=== PATIENT | female | born 1945 | race Caucasian/White ===

== ENCOUNTER 2017-06-25 13:37 | Emergency (ER) | payer OTHER ==
[~2017-06-25] VITALS: Ht 149.9 cm; Wt 66.7 kg
[~2017-06-25 13:37] MED LIST: ADULT LOW DOSE81 MG PO; ALLER-EASE180 MG PO; ASPIRIN325 PO; ATORVASTATIN CA40 MG PO; BACITRACIN 500U30 G1 TOP; CELEXA20 MG PO; CLONIDINE0.1 PO; COMBIGAN EYE DR10 ML OP; COREG; COREG25 MG PO; LANTUS SC; LASIX 20 MG TAB20 MG PO; LEVOTHROID 00.075 M1 PO; LEVOTHYROXIN0.075 MG PO; LISINOPRIL10 MG PO; MELOXICAM7.5 MG PO; NEURONTIN 300300 M1 PO; NOVOLOG100 UNIT/1 SUBQ; OMEPRAZOLE20 M1 PO; ZOCOR 20 MG TAB20 M1 PO; [UNRECOGNIZED DRUG - REMARK]
[2017-06-25 14:12] LABS: ABSOLUTE BASOPHILS 0.1 thou/uL (0.0-0.2); ABSOLUTE LYMPHOCYTES 1.6 thou/uL (0.8-5.3); ABSOLUTE MONOCYTES 0.6 thou/uL (0.0-1.2); ABSOLUTE NEUTROPHILS 8.4 thou/uL (1.6-8.1); BASOPHILS 0.7 %; EOSINOPHILS 0.1 %; HEMATOCRIT 45.3 % (37.0-47.0); HEMOGLOBIN 14.8 gm/dL (12.0-15.0); LYMPHOCYTES 14.9 %; MCH 30.9 pg (26.0-34.0); MCHC 32.6 g/dL (28.0-37.0); MCV 94.7 fL (80.0-100.0); MONOCYTES 5.3 %; MPV 9.5 fl. (7.2-11.1); NUCLEATED RBCS 0 /100WBC; PLATELET COUNT* 136 thou/uL (150-400); RBC 4.79 mil/uL (4.20-5.00); RDW-CV 14.1 % (10.5-14.5); WBC 10.6 thou/uL (4.0-11.0)
[2017-06-25 14:20] LABS: CALCIUM 9.2 mg/dL (8.5-10.1); CREATININE 1.5 mg/dL (0.6-1.3); POTASSIUM 4.4 mmol/L (3.5-5.1)
[2017-06-25 14:24] LABS: ALBUMIN 3.8 g/dL (3.4-5.0); TOTAL BILIRUBIN 0.4 mg/dL (<0.1-1.0); TOTAL PROTEIN 7.5 g/dL (6.4-8.2)
[2017-06-25 15:48] LABS: URINE BILIRUBIN NEGATIVE (Negative); URINE BLOOD 1+ (Negative); URINE CLARITY CLEAR; URINE COLOR YELLOW; URINE GLUCOSE-RANDOM 2+ (Negative); URINE KETONES NEGATIVE (Negative); URINE LEUKOCYTES-REFLEX NEGATIVE (Negative); URINE NITRITE-REFLEX NEGATIVE (Negative); URINE PROTEIN 1+ (Negative); URINE SPECIFIC GRAVITY 1.015 (1.005-1.030); URINE UROBILINOGEN 0.2 E.U./dl (0.2-1.0)
[2017-06-25 16:00] LABS: BACTERIA-REFLEX None Seen /HPF (None Seen); CRYSTALS None Seen /LPF (None Seen); HYALINE CASTS 0-3 Few /LPF (None Seen); SQUAMOUS >10 Many /LPF (0-3); URINE RBC 3-10 Few /HPF (0-2); URINE WBC-REFLEX 0-5 Rare /HPF (0-5)
[2017-06-25] MEDS ORDERED: CLEARLAX17 GM PO (16:05)
[2017-06-25 16:15] VITALS: BP 171/66
== END 2017-06-25 16:17 | disposition home or self-care (01) ==
LOC: M.ERS 13:37
PROVIDERS: Nurse Practitioner Family
DX: K59.00 Constipation, unspecified (principal); E11.9 Type 2 diabetes mellitus without complications; E03.9 Hypothyroidism, unspecified; I10 Essential (primary) hypertension; Z90.49 Acquired absence of other specified parts of digestive tract; Z90.710 Acquired absence of both cervix and uterus; Z79.4 Long term (current) use of insulin; Z88.5 Allergy status to narcotic agent; Z88.0 Allergy status to penicillin; Z88.8 Allergy status to other drugs, medicaments and biological substances

== ENCOUNTER → 2018-12-28 | Outpatient (CLI) | payer OTHER ==
[~2018-12-28] MED LIST changes: +CLEARLAX17 GM PO
[2018-12-28 14:36] LABS: ALBUMIN 3.8 g/dL (3.4-5.0); ALKALINE PHOSPHATASE 109 U/L (46-116); ANION GAP 4 mmol/L (7-16); BUN 32 mg/dL (7-18); CALCIUM 9.5 mg/dL (8.5-10.1); CHLORIDE 105 mmol/L (98-107); CHOLESTEROL 144 mg/dL (<200); CO2 35 mmol/L (21-32); CREATININE 1.2 mg/dL (0.6-1.3); GLUCOSE 76 mg/dL (70-99); HDL CHOLESTEROL 66 mg/dL (>40); LDL CHOLESTEROL 56 mg/dL (<100); NT-PRO BRAIN NAT PEPTIDE 2285 pg/mL (<300); POTASSIUM 4.3 mmol/L (3.5-5.1); SGOT 20 U/L (15-37); SGPT 28 U/L (30-65); SODIUM 144 mmol/L (136-145); TC:HDL 2.2 Ratio (Not establshd); TOTAL BILIRUBIN 0.5 mg/dL (<0.1-1.0); TOTAL PROTEIN 6.7 g/dL (6.4-8.2); TRIGLYCERIDE 112 mg/dL (<150); VLDL 22 mg/dL (<40)
[2018-12-28 14:38] LABS: SERUM ASSESSMENT Clear
== END ==
LOC: M.LAB 13:47
PROVIDERS: Registered Nurse
DX: I42.8 Other cardiomyopathies (principal); E78.5 Hyperlipidemia, unspecified

== ENCOUNTER → 2019-01-24 | Outpatient (CLI) | payer OTHER ==
--- NOTE | 2019-01-24 15:48 | 2DMMODE ---
[place] [address] 2 D/M-MODE ECHOCARDIOGRAM Name: VINICIO BALLESTEROS Room: [facility]#: [id number] Admission: 01/24/19 Attend Phys: Milagro Martell Discharge: Date of : 41 Date of Service: 01/24/19 1548 Report #: [id number] THIS REPORT FOR: //name// APPROVED REPORT Study performed: 01/24/2019 13:48:18 EXAM: Comprehensive 2D, Doppler, and color-flow Echocardiogram Patient Location: Out-Patient BSA: 1.60 HR: 79 bpm BP: 137/72 mmHg Other Information Study Quality: Fair Indications Cardiomyopathy 2D Dimensions IVSd: 10.96 (7-11mm) LVOT Diam: 20.47 (18-24mm) LVDd: 43.27 mm PWd: 12.49 (7-11mm) Ascending Ao: 25.72 (22-36mm) LVDs: 33.31 (25-40mm) Aortic Root: 22.53 mm Volumes Left Atrial Volume (Systole) LA ESV Index: 19.70 mL/m2 Aortic Valve AoV Peak Juan.: 1.52 m/s AO Peak Gr.: 9.19 mmHg LVOT Max P.17 mmHg AO Mean Gr.: 5.06 mmHg LVOT Mean P.05 mmHg LVOT Max V: 0.74 m/s AO V2 VTI: 26.19 cm LVOT Mean V: 0.47 m/s LESLEY (VTI): 1.99 cm2 LVOT V1 VTI: 15.85 cm TDI Medial E' Juan.: 0.07 m/s Lateral E' Juan.: 0.11 m/s Pulmonary Valve PV Peak Juan.: 0.82 m/s PV Peak Gr.: 2.[place] [address] 2 D/M-MODE ECHOCARDIOGRAM Name: VINICIO BALLESTEROS Room: [facility]#: [id number] Admission: 01/24/19 Attend Phys: Milagro Martell Discharge: Date of : 41 Date of Service: 01/24/19 1548 Report #: [id number] Tricuspid Valve RAP Estimate: 5.00 mmHg TR Peak Gr.: 26.02 mmHg RVSP: 31.02 mmHg PA Pressure: 31.02 mmHg Left Ventricle The left ventricle is normal size. There is moderate diffuse hypokinesis of left ventricular wall motion. There is normal left ventricular wall thickness. Left ventricular systolic function is moderately decreased. LVEF is 40-45%. Right Ventricle The right ventricle is normal size. The right ventricular systolic function is normal. Atria Left atrium is mildly dilated. The right atrium size is normal. Aortic Valve Aortic valve is mildly calcified. Mild aortic regurgitation. There is no aortic valvular stenosis. Mitral Valve The mitral valve is normal in structure. Mild mitral regurgitation. No evidence of mitral valve stenosis. Tricuspid Valve The tricuspid valve is normal in structure. Mild tricuspid regurgitation. Pulmonic Valve The pulmonary valve is normal in structure. Mild pulmonic regurgitation. Great Vessels The aortic root is normal in size. IVC is normal in size and collapses >50% with inspiration. Pericardium There is no pericardial effusion. <Conclusion> The left ventricle is normal size. There is normal left [place] [address] 2 D/M-MODE ECHOCARDIOGRAM Name: FAVIANVINICIO Room: [facility]#: [id number] Admission: 01/24/19 Attend Phys: Milagro Martell Discharge: Date of : 41 Date of Service: 01/24/19 1548 Report #: [id number] Left ventricular systolic function is moderately decreased. LVEF is 40-45%. The right ventricle is normal size. Left atrium is mildly dilated. The right atrium size is normal. Aortic valve is mildly calcified. Mild aortic regurgitation. There is no aortic valvular stenosis. The mitral valve is normal in structure. Mild mitral regurgitation. The tricuspid valve is normal in structure. Mild tricuspid regurgitation. IVC is normal in size and collapses >50% with inspiration. There is no pericardial effusion. There is moderate diffuse hypokinesis of left ventricular wall motion. <ELECTRONICALLY SIGNED> By: Cj Hernandez MD, [facility] 01/24/19 1548 1548 1548 Cj Hernandez MD, FAC /INF
== END ==
LOC: M.CRD 13:32
DX: I08.8 Other rheumatic multiple valve diseases (principal); I42.8 Other cardiomyopathies

== ENCOUNTER 2021-03-17 14:00 | Inpatient (IN) | payer OTHER ==
[~2021-03-17] VITALS: Ht 149.9 cm; Wt 65.8 kg
[2021-03-17 14:04] VITALS: BP 166/68
[2021-03-17 14:50] LABS: ABSOLUTE BASOPHILS 0.1 thou/uL (0.0-0.2); ABSOLUTE EOSINOPHILS 0.1 thou/uL (0.0-0.7); ABSOLUTE LYMPHOCYTES 2.2 thou/uL (0.8-5.3); ABSOLUTE MONOCYTES 0.7 thou/uL (0.0-1.2); ABSOLUTE NEUTROPHILS 5.3 thou/uL (1.6-8.1); BASOPHILS 0.7 %; EOSINOPHILS 1.5 %; HEMOGLOBIN 12.6 gm/dL (12.0-15.0); LYMPHOCYTES 26.6 %; MCH 31.2 pg (26.0-34.0); MCHC 33.2 g/dL (28.0-37.0); MONOCYTES 8.3 %; MPV 9.3 fl. (7.2-11.1); NUCLEATED RBCS 0 /100WBC; PLATELET COUNT* 143 thou/uL (150-400); POLYS 62.9 %; RBC 4.05 mil/uL (4.20-5.00); RDW-CV 13.9 % (10.5-14.5); WBC 8.4 thou/uL (4.0-11.0)
[2021-03-17 14:58] LABS: CALCIUM 8.5 mg/dL (8.5-10.1); CREATININE 1.4 mg/dL (0.6-1.3); POTASSIUM 5.3 mmol/L (3.5-5.1)
[2021-03-17 15:03] LABS: ALBUMIN 3.1 g/dL (3.4-5.0); TOTAL BILIRUBIN 0.3 mg/dL (<0.1-1.0); TOTAL PROTEIN 6.3 g/dL (6.4-8.2)
[2021-03-17 15:05] LABS: PROTIME 10.4 Seconds (9.20-11.50)
[2021-03-17 19:45] VITALS: BP 179/70
[2021-03-17 20:15] VITALS: BP 168/77
[2021-03-18] VITALS: BP 160/53
[2021-03-18 04:00] VITALS: BP 161/37
[2021-03-18 08:00] VITALS: BP 166/61
[2021-03-18 10:27] LABS: ABSOLUTE BASOPHILS 0.1 thou/uL (0.0-0.2); ABSOLUTE EOSINOPHILS 0.1 thou/uL (0.0-0.7); ABSOLUTE LYMPHOCYTES 2.3 thou/uL (0.8-5.3); ABSOLUTE MONOCYTES 0.5 thou/uL (0.0-1.2); ABSOLUTE NEUTROPHILS 4.3 thou/uL (1.6-8.1); EOSINOPHILS 1.3 %; HEMATOCRIT 40.9 % (37.0-47.0); HEMOGLOBIN 13.4 gm/dL (12.0-15.0); LYMPHOCYTES 31.9 %; MCH 30.8 pg (26.0-34.0); MCHC 32.7 g/dL (28.0-37.0); MCV 94.1 fL (80.0-100.0); MONOCYTES 6.9 %; MPV 9.8 fl. (7.2-11.1); NUCLEATED RBCS 0 /100WBC; PLATELET COUNT* 154 thou/uL (150-400); POLYS 58.9 %; RBC 4.35 mil/uL (4.20-5.00); WBC 7.2 thou/uL (4.0-11.0)
[2021-03-18 11:28] LABS: ALBUMIN 3.1 g/dL (3.4-5.0); ALKALINE PHOSPHATASE 78 U/L (46-116); ANION GAP 9 mmol/L (7-16); BUN 18 mg/dL (7-18); CALCIUM 8.9 mg/dL (8.5-10.1); CHLORIDE 105 mmol/L (98-107); CHOLESTEROL 149 mg/dL (<200); CO2 30 mmol/L (21-32); CREATININE 1.2 mg/dL (0.6-1.3); GLUCOSE 113 mg/dL (70-99); HDL CHOLESTEROL 60 mg/dL (>40); LDL CHOLESTEROL 65 mg/dL (<100); SGOT 20 U/L (15-37); SGPT 31 U/L (30-65); SODIUM 144 mmol/L (136-145); TC:HDL 2.5 Ratio (Not establshd); TOTAL BILIRUBIN 0.4 mg/dL (<0.1-1.0); TOTAL PROTEIN 6.2 g/dL (6.4-8.2); TRIGLYCERIDE 124 mg/dL (<150); VLDL 25 mg/dL (<40)
[2021-03-18 11:30] LABS: POTASSIUM 4.2 mmol/L (3.5-5.1)
[2021-03-18 11:33] LABS: SERUM ASSESSMENT Clear
[2021-03-18 11:44] VITALS: BP 122/53
[2021-03-18 11:52] LABS: ESR (SEDRATE) 0 mm/hr (0-30)
--- NOTE | 2021-03-18 16:20 | 2DMMODE ---
[place] [address] 2 D/M-MODE ECHOCARDIOGRAM Name: VINICIO BALLESTEROS Room: [address] M.REric#: [id number] Admission: 03/17/21 Attend Phys: Panda Forbes Discharge: Date of : 41 Date of Service: 03/18/21 1620 Report #: [id number] THIS REPORT FOR: cc: Cj Cee John E. DO Liston, Michael J. MD [facility] ~ ADDENDUM APPROVED REPORT Study performed: 03/18/2021 10:49:06 EXAM: Comprehensive 2D, Doppler, and color-flow Echocardiogram Patient Location: In-Patient Room #: [facility] Status: routine BSA: 1.60 HR: 90 bpm BP: 166/61 mmHg Rhythm: NSR Other Information Study Quality: Good Indications CVA/TIA Echo Enhancing Agent Indication: Rule out Shunt Agent(s) / Amount(s) Used: Agitated Saline 10 cc 2D Dimensions IVSd: 11.52 (7-11mm) LVOT Diam: 18.75 (18-24mm) LVDd: 43.62 mm PWd: 9.15 (7-11mm) Ascending Ao: 26.10 (22-36mm) LVDs: 32.88 (25-40mm) Aortic Root: 26.60 mm Volumes Left Atrial Volume (Systole) LA ESV Index: 33.10 mL/m2 Aortic Valve AoV Peak Juan.: 1.63 m/s AO Peak Gr.: 10.57 mmHg LVOT Max P.97 mmHg AO Mean Gr.: 5.95 mmHg LVOT Mean P.52 [place] [address] 2 D/M-MODE ECHOCARDIOGRAM Name: VINICIO BALLESTEROS Room: [address] M.R.#: [id number] Admission: 03/17/21 Attend Phys: Panda Forbes Discharge: Date of : 41 Date of Service: 03/18/21 1620 Report #: [id number] LVOT Max V: 0.86 m/s AO V2 VTI: 27.11 cm LVOT Mean V: 0.57 m/s LESLEY (VTI): 1.74 cm2 LVOT V1 VTI: 17.08 cm Mitral Valve E/A Ratio: 0.62 MV Decel. Time: 150.35 ms MV E Max Juan.: 0.79 m/s MV PHT: 43.60 ms MVA (PHT): 5.05 cm2 TDI E/Lateral E': 19.75 E/Medial E': 19.75 Medial E' Juan.: 0.04 m/s Lateral E' Juan.: 0.04 m/s Pulmonary Valve PV Peak Juan.: 0.92 m/s PV Peak Gr.: 3.41 mmHg Tricuspid Valve RAP Estimate: 5.00 mmHg TR Peak Gr.: 32.25 mmHg RVSP: 37.00 mmHg PA Pressure: 37.00 mmHg Left Ventricle The left ventricle is normal size. There is normal LV segmental wall motion. Mild concentric left ventricular hypertrophy. Left ventricular systolic function is normal. LVEF is 55-60%. Grade I - abnormal relaxation pattern. Right Ventricle The right ventricle is normal size. The right ventricular systolic function is normal. Pacemaker lead is present in the right ventricle. Atria The left atrium size is normal. The interatrial septum is intact with no evidence for an atrial septal defect. The right atrium size is normal. Aortic Valve Mild aortic valve sclerosis. Mild aortic regurgitation. Mild aortic stenosis. Mitral Valve The mitral valve is normal in structure. Trace mitral regurgitation. No evidence [place] [address] 2 D/M-MODE ECHOCARDIOGRAM Name: VINICIO BALLESTEROS Room: [address] M.R.#: [id number] Admission: 03/17/21 Attend Phys: Panda Forbes Discharge: Date of : 41 Date of Service: 03/18/21 1620 Report #: [id number] Tricuspid Valve The tricuspid valve is normal in structure. Mild tricuspid regurgitation. Mild pulmonary hypertension. The RVSP is 40-45 mmHg. Pulmonic Valve The pulmonary valve is normal in structure. Mild pulmonic regurgitation. Great Vessels The aortic root is normal in size. IVC is normal in size and collapses >50% with inspiration. Pericardium There is no pericardial effusion. <Conclusion> The left ventricle is normal size. Mild concentric left ventricular hypertrophy. Left ventricular systolic function is normal. LVEF is 55-60%. Grade I - abnormal relaxation pattern. Mild aortic valve sclerosis. Mild aortic regurgitation. Mild aortic stenosis. Trace mitral regurgitation. Mild tricuspid regurgitation. Mild pulmonary hypertension. The RVSP is 40-45 mmHg. IVC is normal in size and collapses >50% with inspiration. Pacemaker lead is present in the right ventricle. The interatrial septum is intact with no evidence for an atrial septal defect. <ELECTRONICALLY SIGNED> By: Chiki Arellano MD, FACC 03/18/21 1620 162 162 Chiki Arellano MD, FACC /INF
[2021-03-18 17:13] VITALS: BP 139/60
[2021-03-18 20:00] VITALS: BP 151/53
[2021-03-19] VITALS (7 sets, daily range): BP systolic 104–175; BP diastolic 47–69
[2021-03-19 05:05] LABS: HEMATOCRIT 38.2 % (37.0-47.0); HEMOGLOBIN 12.4 gm/dL (12.0-15.0); MCH 30.6 pg (26.0-34.0); MCHC 32.5 g/dL (28.0-37.0); MCV 93.9 fL (80.0-100.0); MPV 9.7 fl. (7.2-11.1); RBC 4.07 mil/uL (4.20-5.00); RDW-CV 13.9 % (10.5-14.5); WBC 6.2 thou/uL (4.0-11.0)
[2021-03-19 05:26] LABS: CALCIUM 8.8 mg/dL (8.5-10.1); CREATININE 1.3 mg/dL (0.6-1.3); POTASSIUM 5.1 mmol/L (3.5-5.1)
[2021-03-19 07:08] LABS: GLYCOHEMOGLOBIN (HGB A1C) 8.2 % (4.8-5.6)
--- NOTE | 2021-03-19 09:00 | EKG ---
[place] [address] ELECTROCARDIOGRAM REPORT Name: VINICIO BALLESTEROS Room: [address] M.R.#: [id number] Admission: 03/17/21 Attend Phys: Panda Forbes Discharge: Date of : 41 Date of Service: 03/17/21 1445 Report #: [id number] THIS REPORT FOR: //name// [facility] ED Test Date: 2021-03-17 Test Time: 14:45:59 Pat Name: VINICIO BALLESTEROS Department: Room: [facility] Gender: F Sample Case Porter: CD : 1945 Requested By: Harjinder Mcneil Order Number: [id number] MD: Chiki Arellano Measurements Intervals [place] Rate: 83 P: 83 [place]: 139 QRS: 204 QRSD: 129 T: 70 QT: 418 QTc: 492 Interpretive Statements A-V dual-paced rhythm with some inhibition No further analysis attempted due to paced rhythm Compared to ECG 12/24/2016 16:37:55 Atrial-sensed ventricular-paced complex(es) or rhythm no longer present Electronically Signed On 03-19-2021 9:00:23 CDT by Chiki Arellano [email or web address] <ELECTRONICALLY SIGNED> By: Chiki Arellano MD, FACC 03/19/21 0900 1445 1445 Chiki Arellano MD, FACC /EPI
[2021-03-19] MEDS ORDERED: HUMALOG JU100 UNIT/1 SQ (13:37)
[2021-03-19] MEDS ORDERED: INSULIN LI100 UNIT/1 SQ (13:45)
[2021-03-20 00:21] VITALS: BP 146/58
[2021-03-20 04:00] VITALS: BP 141/61
[2021-03-20 05:34] LABS: URINE BILIRUBIN NEGATIVE (Negative); URINE BLOOD NEGATIVE (Negative); URINE CLARITY CLEAR; URINE COLOR YELLOW; URINE GLUCOSE-RANDOM 2+ (Negative); URINE KETONES NEGATIVE (Negative); URINE LEUKOCYTES-REFLEX NEGATIVE (Negative); URINE NITRITE-REFLEX NEGATIVE (Negative); URINE PROTEIN TRACE (Negative); URINE UROBILINOGEN 0.2 E.U./dl (0.2-1.0)
--- NOTE | 2021-03-20 10:12 | CON ---
[facility] [address] [place] [address] CONSULTATION Name: VINICIO BALLESTEROS Room: [address] [place] M.R.#: [id number] Admission: 03/19/21 Attend Phys: Anival Dexter Discharge: Date of : 41 Report #: [id number] THIS REPORT FOR: cc: Cj Cee John E. DO Khosla, Parveen K. MD ~ DATE OF CONSULTATION: 03/18/2021 HISTORY OF PRESENT ILLNESS: A 75-year-old female patient who was evaluated by me for an episode of speech difficulty and some symptoms in the right upper extremity. The patient is very hard of hearing and she provides very little history. Does not know what her baseline is either. was there and he provided most of the history. This was also associated with headache on the left side. She has some waxing and waning headache even prior to that. REVIEW OF SYSTEMS: Indicates that the patient did have trouble articulating the word, but that symptom has resolved. Headache also was resolved. It looks more like thunderclap headache, which came and then became better. Headache was on the left side and she has speech difficulty and symptoms on the right side. Review of systems indicates that the patient has diabetes, but there is no documented hypoglycemia. The patient has blindness predominantly because of glaucoma. When the patient came to Emergency Room, it looked like her blood glucose was 271, so I do not think there is any documented hypoglycemia in this patient. She denies any prior history of stroke. She does have a pacemaker as well as defibrillator. Does have a history of hypertension and hypothyroidism. She is blind. She is not dizzy. She is very hard of hearing. She denies any nausea, vomiting, , musculoskeletal, constitutional, dermatological, hematological, psychiatric, throat or allergic symptom associated with present symptomatology. Review of systems is also positive for hysterectomy. She uses cane for short distance walking. She has a brace on the left foot. She had bilateral carpal tunnel syndrome. She has some benign tumor. She had a history of cholecystectomy. This was a relevant 14-point review of systems. PAST MEDICAL HISTORY: Negative for stroke. FAMILY HISTORY: Negative for early age stroke. SOCIAL HISTORY: She does not drink alcohol or smoke. PHYSICAL EXAMINATION: Higher function is difficult because the patient is very hard of hearing. I tried a lot. Her speech looks intact, but I can tell about memory or fund of knowledge. She has blindness, but does not appear to have any facial palsy. She has old foot drop, but otherwise neuromuscular examination was symmetrical and she also indicates that she has returned back to the baseline. I cannot look at the fundus because of [place] [address] CONSULTATION Name: FAVIANVINICIO WHITNEY Room: [address] [place] .R.#: [id number] Admission: 03/19/21 Attend Phys: Anival Dexter Discharge: Date of : 41 Report #: [id number] appear to be any ataxia. Cardiac examination is unremarkable. No edema. Blood pressure is 139/60, respirations 18, pulse is 62, temperature 97.7. The patient did not have any breathing difficulty. She did have some scattered rhonchi. Pulses are somewhat difficult to feel. She appeared to be reasonably well-developed individual. IMAGING DATA: She did have a CT scan and I am going to find out as I understand. She also had a CT angiogram of the head and neck. IMPRESSION: The patient's symptom is consistent with transient ischemic attack. The left-sided headache happening with it is worrisome. Because of that, the possibility of aneurysm causing transient ischemic attack needs to be excluded. That should be excluded by the CT angiogram, which looks like she had, but I cannot find the report and films and I am trying to look for it. Peshtigo test on her should have been MRI of the brain and MRA of the head, but she cannot have that because she has a pacemaker and defibrillator. does not know whether the pacemaker is compatible with MRI or not, but defibrillator, he thinks it is not because she was told never to have MRI. The other problem is looks like she has a CT angiogram, but I cannot tell for sure and I will try to find out if she did. Her creatinine and BUN were normal today, but it was 1.4 yesterday and at one time it was 1.5. Because of that, I started her on some fluids. I will try to clarify the situation because the situation is not clear in this patient, but looks like CT angiogram was ordered by Dr. Forbes in the morning and I understand was done, but I cannot find the results. If it was not done, I might just hold the CT angio and hydrate her well and then do the CT angio after talking to Renal. I am trying to find out what I will see if I can find out. Thank you very much for this referral. <ELECTRONICALLY SIGNED> By: Donavon Douglas MD 03/20/21 1012 1814 26Pardenilson Douglas MD /nt
[2021-03-20 12:00] VITALS: BP 132/49
[2021-03-20 16:00] VITALS: BP 113/46
[2021-03-20 19:45] VITALS: BP 157/59
[2021-03-21 00:38] VITALS: BP 156/64
[2021-03-21 04:00] VITALS: BP 177/64
[2021-03-21 08:31] VITALS: BP 173/74
[2021-03-21 12:01] VITALS: BP 152/57
[2021-03-21 17:15] VITALS: BP 152/56
[2021-03-21 20:00] VITALS: BP 146/64
[2021-03-22] VITALS: BP 169/64
[2021-03-22 04:00] VITALS: BP 155/59
[2021-03-22 08:00] VITALS: BP 186/73
[2021-03-22 10:28] VITALS: BP 121/47
[2021-03-22 12:00] VITALS: BP 163/65
== END 2021-03-22 13:00 | DRG 69 ==
LOC: M.ERS 14:00 → M.TBA-ER 15:37 → M.2W 15:37
PROVIDERS: Emergency Medicine; Pediatrics; ADMIT Internal Medicine; ATTEND Internal Medicine
PROC: 4B02XTZ Measurement of Cardiac Defibrillator, External Approach (ICD-10-PCS; principal; 2021-03-20)
DX: G45.9 Transient cerebral ischemic attack, unspecified (principal); I16.1 Hypertensive emergency; I42.8 Other cardiomyopathies; E03.9 Hypothyroidism, unspecified; I10 Essential (primary) hypertension; E11.65 Type 2 diabetes mellitus with hyperglycemia; E78.5 Hyperlipidemia, unspecified; Z20.822 Contact with and (suspected) exposure to COVID-19; Z79.4 Long term (current) use of insulin; Z90.49 Acquired absence of other specified parts of digestive tract; Z90.710 Acquired absence of both cervix and uterus; Z88.6 Allergy status to analgesic agent; Z88.0 Allergy status to penicillin; Z88.8 Allergy status to other drugs, medicaments and biological substances; Z79.82 Long term (current) use of aspirin; Z79.899 Other long term (current) drug therapy; Z95.828 Presence of other vascular implants and grafts; Z98.41 Cataract extraction status, right eye